=== PATIENT | male | born 2000 | race Two or more races ===

== ENCOUNTER 2020-06-27 22:28 | Emergency (ER) | payer MEDICAID ==
[~2020-06-27] VITALS: Ht 170.2 cm; Wt 63.6 kg
[2020-06-27] MEDS ORDERED: IBUPROFEN 600 MG TABLET PO ONE (23:30)
[2020-06-27] MEDS ORDERED: ACETAMINOPHEN 500 MG TABLET PO ONE (23:30)
[2020-06-27] MEDS ORDERED: LIDOCAINE 1% 10 ML VIAL SQ ONE (23:30)
[2020-06-27] MEDS ORDERED: PERTUSS(ACELL),DIPH,TET VAC/PF 0.5 ML SYRINGE IM. ONE (23:45)
[2020-06-28] VITALS: BP 122/69
[2020-06-28] MEDS ORDERED: BACITRACIN 0.9 GM PACKET OINTMENT TP ONE (00:30)
[2020-06-28] MEDS ORDERED: DOXYCYCLINE HYCLATE 100 MG TABLET PO ONE (00:30)
== END 2020-06-28 01:07 | disposition home or self-care (01) ==
LOC: EMS 22:28
DX: S62.622A Displaced fracture of middle phalanx of right middle finger, initial encounter for closed fracture (principal); W23.0XXA Caught, crushed, jammed, or pinched between moving objects, initial encounter; Y93.89 Activity, other specified; Y92.89 Other specified places as the place of occurrence of the external cause; Y99.8 Other external cause status
CPT/HCPCS: 29130; 73140; 90471; 90715; 99284; J3490